=== PATIENT | female | born 1990 | race Caucasian/White ===

== ENCOUNTER 2019-06-13 05:44 | Inpatient (IN) | payer MEDICAID, OTHER ==
[~2019-06-13] VITALS: Ht 167.6 cm; Wt 93.1 kg
[2019-06-13] MEDS ORDERED: METOCLOPRAMIDE 5 MG/ML, 2ML ONE (05:55)
[2019-06-13] MEDS ORDERED: OXYTOCIN 30U/ 0.9% NaCL 500ML 500 ML ONE (05:55)
[2019-06-13] MEDS ORDERED: SODIUM CITRATE/CITRIC ACID 15 ML UDC ONE (05:55)
[2019-06-13] MEDS ORDERED: NEWBORN KIT ONE (05:56)
[2019-06-13] MEDS ORDERED: LACTATED RINGERS 1,000 ML IVBOLUS ONE (06:00)
[2019-06-13] MEDS ORDERED: SODIUM CITRATE/CITRIC ACID 15 ML UDC PO ONE (06:00)
[2019-06-13] MEDS ORDERED: METOCLOPRAMIDE 5 MG/ML, 2ML IV ONE (06:00)
[2019-06-13 06:17] LABS: BASOPHILS # (AUTO) 0.03 x10^3/uL (0-0.1); BASOPHILS % (AUTO) 1 % (0-1); EOSINOPHILS # (AUTO) 0.07 x10^3/uL (0-0.4); EOSINOPHILS % (AUTO) 1 % (1-7); LYMPHOCYTES # (AUTO) 1.84 x10^3/uL (1-3.4); LYMPHOCYTES % (AUTO) 31 % (22-44); MD NO; MEAN CORPUSCULAR HEMOGLOBIN 32.5 pg (27.0-34.8); MEAN CORPUSCULAR HGB CONC 34.2 g/dL (32.4-35.8); MEAN CORPUSCULAR VOLUME 95.1 fL (80-100); MEAN PLATELET VOLUME 7.7 fL (7.4-10.4); MONOCYTES # (AUTO) 0.58 x10^3/uL (0.2-0.8); MONOCYTES % (AUTO) 10 % (2-9); NEUTROPHILS # (AUTO) 3.47 x10^3/uL (1.8-6.8); NEUTROPHILS % (AUTO) 58 % (42-75); PLATELET COUNT 191 x10^3/uL (130-400); RED BLOOD COUNT 3.82 x10^6/uL (3.82-5.3); RED CELL DISTRIBUTION WIDTH 13.7 % (9.6-15.2)
[2019-06-13] MEDS ORDERED: PLEASE ENTER HEIGHT AND WEIGHT MC SCH (06:30)
[2019-06-13 06:37] VITALS: BP 107/67
[2019-06-13] MEDS ORDERED: FENTANYL PF 100 MCG/2ML ONE (07:11)
[2019-06-13] MEDS ORDERED: ONDANSETRON 2MG/ML, 2ML ONE (07:11)
[2019-06-13] MEDS ORDERED: CEFAZOLIN 1,000 MG ONE (07:11)
[2019-06-13] MEDS ORDERED: OXYTOCIN 10 UNITS/ML, 1ML ONE (07:11)
[2019-06-13] MEDS ORDERED: HYDROmorphone 2 MG/ML, 1ML ONE (07:13)
[2019-06-13] MEDS ORDERED: EPHEDRINE 50 MG/ML, 1ML ONE (07:34)
[2019-06-13] MEDS ORDERED: KETOROLAC 30 MG/1 ML ONE (08:38)
[2019-06-13] MEDS: LACTATED RINGERS 1,000 ML IV SCH ×4 (08:43→18:43)
[2019-06-13] MEDS ORDERED: CALCIUM CARBONATE 500 MG TAB.CHEW PO PRN (09:00)
[2019-06-13] MEDS ORDERED: MEASLES,MUMPS&RUBELLA VACC/PF 0.5 ML SQ-VACC PRN (09:00)
[2019-06-13] MEDS ORDERED: MEPERIDINE/PF 50 MG/ML IM PRN (09:00)
[2019-06-13] MEDS ORDERED: GLYCERIN ADULT SUPP PR PRN (09:00)
[2019-06-13] MEDS ORDERED: BISACODYL 10 MG SUPP PR PRN (09:00)
[2019-06-13] MEDS ORDERED: ACETAMINOPHEN 325 MG TABLET PO PRN ×2 (09:00)
[2019-06-13] MEDS ORDERED: ONDANSETRON 2MG/ML, 2ML IV PRN (09:00)
[2019-06-13] MEDS ORDERED: CARBOPROST TROMETHAMINE 250 MCG/ML, 1ML IM PRN (09:00)
[2019-06-13] MEDS ORDERED: METHYLERGONOVINE 0.2 MG/ML IM PRN (09:00)
[2019-06-13] MEDS ORDERED: METOCLOPRAMIDE 5 MG/ML, 2ML IV PRN (09:00)
[2019-06-13] MEDS ORDERED: MISOPROSTOL 200 MCG TABLET PR PRN (09:00)
[2019-06-13] MEDS ORDERED: SIMETHICONE 80 MG CHEW TAB PO PRN (09:00)
[2019-06-13] MEDS: OXYTOCIN 30U/ 0.9% NaCL 500ML 500 ML IV SCH ×2 (09:44→18:43)
[2019-06-13] MEDS ORDERED: OXYcodone 5 MG/5 ML ORAL.SOL UDC ONE ×2 (10:06→12:57)
[2019-06-13] MEDS: OXYcodone 5 MG/5 ML ORAL.SOL UDC PO PRN ×2 (10:11→13:47)
[2019-06-13] MEDS: KETOROLAC 30 MG/1 ML IV SCH ×3 (15:00→21:25)
[2019-06-13] MEDS: PRENATAL VIT/IRON/FA 1 EACH TABLET PO SCH (15:42)
[2019-06-13 16:00] VITALS: BP 105/70
[2019-06-13] MEDS: OXYcodone IR 5MG TABLET PO PRN ×3 (18:31→23:54)
[2019-06-13 19:06] LABS: BASOPHILS # (AUTO) 0.02 x10^3/uL (0-0.1); BASOPHILS % (AUTO) 0 % (0-1); EOSINOPHILS # (AUTO) 0.11 x10^3/uL (0-0.4); EOSINOPHILS % (AUTO) 1 % (1-7); LYMPHOCYTES # (AUTO) 1.74 x10^3/uL (1-3.4); LYMPHOCYTES % (AUTO) 20 % (22-44); MD NO; MEAN CORPUSCULAR HEMOGLOBIN 32.3 pg (27.0-34.8); MEAN CORPUSCULAR HGB CONC 33.8 g/dL (32.4-35.8); MEAN CORPUSCULAR VOLUME 95.7 fL (80-100); MEAN PLATELET VOLUME 7.3 fL (7.4-10.4); MONOCYTES # (AUTO) 0.58 x10^3/uL (0.2-0.8); MONOCYTES % (AUTO) 7 % (2-9); NEUTROPHILS # (AUTO) 6.38 x10^3/uL (1.8-6.8); NEUTROPHILS % (AUTO) 72 % (42-75); PLATELET COUNT 163 x10^3/uL (130-400); RED BLOOD COUNT 3.65 x10^6/uL (3.82-5.3); RED CELL DISTRIBUTION WIDTH 13.3 % (9.6-15.2)
[2019-06-13 20:00] VITALS: BP 109/74
[2019-06-13] MEDS: DOCUSATE 100 MG CAPSULE PO PRN (23:54)
[2019-06-14] VITALS: BP 101/64
[2019-06-14] MEDS: LACTATED RINGERS 1,000 ML IV SCH ×5 (00:43→16:43)
[2019-06-14] MEDS: KETOROLAC 30 MG/1 ML IV SCH ×4 (03:26→21:17)
[2019-06-14 04:00] VITALS: BP 92/59
[2019-06-14] MEDS: OXYTOCIN 30U/ 0.9% NaCL 500ML 500 ML IV SCH ×2 (04:43→14:43)
[2019-06-14] MEDS: DOCUSATE 100 MG CAPSULE PO PRN ×2 (07:33→20:36)
[2019-06-14] MEDS: OXYcodone IR 5MG TABLET PO PRN ×3 (07:33→20:36)
[2019-06-14] MEDS: PRENATAL VIT/IRON/FA 1 EACH TABLET PO SCH (07:33)
[2019-06-14 08:00] VITALS: BP 98/62
[2019-06-14] MEDS ORDERED: DIPH,PERTUSS(ACELL),TET VAC/PF NC IM-VACC ONE ×2 (17:50→18:00)
[2019-06-14 20:00] VITALS: BP 106/71
[2019-06-15] MEDS: OXYcodone IR 5MG TABLET PO PRN ×5 (00:38→20:20)
[2019-06-15] MEDS: OXYTOCIN 30U/ 0.9% NaCL 500ML 500 ML IV SCH ×2 (00:43→10:43)
[2019-06-15] MEDS: LACTATED RINGERS 1,000 ML IV SCH ×5 (00:43→16:43)
[2019-06-15] MEDS: KETOROLAC 30 MG/1 ML IV SCH (03:02)
[2019-06-15 09:30] VITALS: BP 108/74
[2019-06-15] MEDS: DOCUSATE 100 MG CAPSULE PO PRN ×2 (09:56→20:20)
[2019-06-15] MEDS: PRENATAL VIT/IRON/FA 1 EACH TABLET PO SCH (09:57)
[2019-06-15] MEDS: IBUPROFEN 600 MG TABLET PO PRN ×3 (09:57→22:34)
[2019-06-15 20:17] VITALS: BP 113/79
[2019-06-16] MEDS: OXYcodone IR 5MG TABLET PO PRN ×4 (01:30→19:26)
[2019-06-16] MEDS: IBUPROFEN 600 MG TABLET PO PRN ×3 (04:16→19:26)
[2019-06-16] MEDS ORDERED: DIPHENHYDRAMINE 25 MG CAPSULE PO PRN (06:30)
[2019-06-16 07:50] VITALS: BP 113/80
[2019-06-16] MEDS: PRENATAL VIT/IRON/FA 1 EACH TABLET PO SCH (08:25)
[2019-06-16] MEDS: DOCUSATE 100 MG CAPSULE PO PRN ×2 (08:25→19:26)
[2019-06-16 20:10] VITALS: BP 127/88
[2019-06-17] MEDS: OXYcodone IR 5MG TABLET PO PRN ×2 (02:47→07:40)
[2019-06-17] MEDS: IBUPROFEN 600 MG TABLET PO PRN ×2 (02:47→12:25)
[2019-06-17 07:50] VITALS: BP 117/83
[2019-06-17] MEDS: DOCUSATE 100 MG CAPSULE PO PRN (12:25)
[2019-06-17] MEDS: PRENATAL VIT/IRON/FA 1 EACH TABLET PO SCH (12:25)
[2019-06-17] MEDS ORDERED: IBUP-1222 PO (12:43)
[2019-06-17] MEDS ORDERED: OXYC-302 PO (12:43)
== END 2019-06-17 17:55 | disposition home or self-care (01) | DRG 788 ==
LOC: LDIP 05:44 → 2NW 11:21
PROVIDERS: ADMIT Obstetrics & Gynecology; ATTEND Obstetrics & Gynecology
PROC: 10D00Z1 Extraction of Products of Conception, Low, Open Approach (ICD-10-PCS; principal; 2019-06-13)
DX: O34.211 Maternal care for low transverse scar from previous cesarean delivery (principal); Z37.0 Single live birth; Z3A.39 39 weeks gestation of pregnancy; Z90.89 Acquired absence of other organs; Z88.0 Allergy status to penicillin
CPT/HCPCS: 36415; 85025; 86850; 86900; 90715; G0378; J0690; J1170; J1885; J2405; J3010; J2590; J7120